=== PATIENT | female | born 1970 | race Caucasian/White ===

== ENCOUNTER 2020-02-15 02:22 | Day surgery (SDC) | payer BC, SELFPAY ==
[2020-02-14 10:20] VITALS: BMI 30.2
[2020-02-15] VITALS (8 sets, daily range): BP systolic 103–133; BP diastolic 74–89; PULSE 65–87; RESP 14–20; TEMP 36.1–36.5; O2SAT 92–99
--- NOTE | ~2020-02-15 | XR_ITS ---
EXAMINATION: XR surgery orthopedic DATE: 02/15/2020 12:11 INDICATION: ORIF for left fifth metacarpal fracture TECHNIQUE: 3 fluoroscopic spot images of the left hand were obtained during procedure performed by Dr Annamaria Anderson. Radiologist was not present for the imaging or procedure. The amount of fluoroscopy time u sed during this procedure was 0.1 minutes. COMPARISON: None. FINDINGS: Dorsal plate and screw fixation across the diaphyseal fracture of the left fifth metacarpal. Alignmen t appears near-anatomic. No other fractures identified. Joint spaces are normal. IMPRESSION: 1. Near-anatomic alignment post dorsal plate and screw fixation of a left fifth metacarpal diaphyseal fracture. Reviewed, dictated and finalized at location A.
[2020-02-15] MEDS: LACTATED RINGERS 1,000 ML 30 ML IV CONT (09:20)
--- NOTE | 2020-02-15 10:19 | WPDANESEPPF ---
Anes - Initial Pre Proc Eval Procedure: Operation Date: 02/15/20 11:00 Proposed Procedures p Open Reduction Internal Fixation Left Fifth Metacarpal - Thad Anderson MD Date/Time: 02/15/20 10:19 Surgeon: Thad Anderson MD Pre Op Diagnosis: Hand Pain Patient Data Age: 50 Gender: F Height: 4 ft 11 in Weight: 67.5 kg Last Vital Signs Temp 36.5 C 02/15/20 09:18 Pulse 73 02/15/20 09:18 Resp 20 02/15/20 09:18 BP 103/74 02/15/20 09:18 Pulse Ox 97 02/15/20 09:18 Allergies Allergy/AdvReac Type Severity Reaction Status Date / Time doxycycline Allergy Intermediate Hives Verified 02/15/20 09:26 Sulfa (Sulfonamide Allergy Intermediate Hives Verified 02/15/20 09:26 Antibiotics) citric acid Allergy Unknown Rash Verified 02/15/20 09:26 latex Allergy Unknown Rash Verified 02/15/20 09:26 Home Medications Medication Instructions Recorded Confirmed Type albuterol sulfate [ProAir HFA] 1 inh INHALATION QID PRN 02/14/20 02/15/20 History cephalexin 500 mg PO BID 02/14/20 02/15/20 History clopidogrel 75 mg PO DAILY 02/14/20 02/15/20 History fluoxetine 40 mg PO DAILY 02/14/20 02/15/20 History hydrocodone-acetaminophen 1 tablet PO Q6H PRN 02/14/20 02/15/20 History lorazepam 1 mg PO TID 02/14/20 02/15/20 History nortriptyline 25 mg PO HS 02/14/20 02/15/20 History pantoprazole 40 mg PO DAILY 02/14/20 02/15/20 History prochlorperazine maleate 10 mg PO TID PRN 02/14/20 02/15/20 History risperidone 1 mg PO HS 02/14/20 02/15/20 History sumatriptan succinate 6 mg SUBCUT BID PRN 02/14/20 02/15/20 History topiramate 50 mg PO DAILY PRN 02/14/20 02/15/20 History Patient hx anesthesia problems: none Family hx anesthesia problems: none PMFSH Past Medical History Medical History Bipolar 1 disorder Obesity Smoker Surgical History Surgical History (Updated 02/15/20 @ 10:20 by Jeremi Stoll MD) History of cholecystectomy Anes - Eval Final PreProcedure Day of Procedure 02/15/20 10:19 Patient weight: obese Heart: regular rate and rhythm Lungs: clear to auscultation Airway: Mallampati scale class II and special considerations poor dentition Neurological: alert and oriented Last oral intake: >/= 8 hours ASA classification: III Emergent: no Anesthetic plan: proceed Anesthesia type and monitoring: general LMA and standard monitoring Informed Consent: The patient's anesthetic plan and its attendant risks and benefits were discussed with the patient/family/POA. Questions were solicited and answers provided to the satisfaction of the patient/family/POA.
--- NOTE | 2020-02-15 10:43 | WPDHPUPDATE1 ---
History and Physical Update Update Date/Time: 02/15/20 10:43 History and Physical has been reviewed, including an updated exam of the patient. There are NO changes in the patient's condition. Risks, benefits, and alternatives have been discussed and questions answered. Patient agrees to proceed with procedure.
[2020-02-15] MEDS: ceFAZolin 2 GM/D5W 50 ML 2 GM/50 ML BAG IVPB (10:59)
--- NOTE | 2020-02-15 12:13 | PM.PROC ---
Procedure Note - Detailed Date of procedure: 02/15/20 Pre-op diagnosis: Hand Pain LEFT 5th MC fracture Post-op diagnosis: same Procedure performed: ORIF LEFT 5th MC fracture Description of procedure: Misc it was properly identified in the preoperative holding area. Signed consent was reviewed. All questions were thoroughly answered my initials were clearly placed on the dorsal aspect of the operative left hand. Patient was taken to the operating room where she was placed in a supine position and general anesthetic was administered. The left upper extremity was elevated, prepped and draped in sterile circumferential manner, exsanguinated and the tourniquet inflated. A brief pauses held identified as the correct patient extremity procedure to be performed carried out, all the room agreement, all. implants in the room immediately available, all sponge and needle counts were verified to be correct. A longitudinal dorsal incision was made directly over the 5th metacarpal centered on the fracture. Soft tissue dissection was meticulously carried down to level of the extensor tendons. The tendons were lightly in gently dissected and retracted ulnarly. Exposure of the underlying fracture was noted. The fracture was an oblique fracture with a dorsal butterfly comminuted piece. A single interfragmentary screw was placed utilizing compression by technique securing the butterfly fragment to the distal metacarpal diaphysis. Once three-part fracture been converted to a 2 part fracture the metacarpall diaphysis was reduced with a [id number] clamp. The [employer] hand plate was then fit a fabricated to fit the contour of the dorsal metacarpal. The plate was screwed with 3 bicortical screws proximally and 3 bicortical screws distally. The [id number] clamp was removed and the fracture was inspected. The fracture is noted to have near anatomic reduction. Fluoroscopy was brought in and under multiple orthogonal views confirmation of fracture reduction as well as placement of all hardware was confirmed. The entire incisions thoroughly irrigated with sterile saline solution the fingers and the wrist replace all full range of motion the fracture held excellent reduction without any failure of the hardware. The incision was closed in layered fashion of the definitive skin closure accomplished with 3 0 Vicryl in the subcutaneous tissues and Dermabond glue on the skin. 4 x 4 and Kurtis bandage was used as a sterile surgical dressing. Postoperative ulnar gutter metatarsal brace was placed holding the 4th and 5th digits at the intrinsic positive position. The tray was deflated in the fingertips pinked up immediately with good brisk capillary refill noted to the nail beds. Anesthesia was reversed and the skin was extubated, taken to postop recovery in stable extubated state, no apparent complications were noted. A postop sponge and needle counts were verified to be correct Implants: BioMet hand plate and screws Anesthesia: GETA Surgeon: Thad Anderson MD Estimated blood loss (mL): 5 Drains: No Packing: No Pathology: none sent Complications: No immediate complications Condition: stable Disposition: PACU Findings: Comminuted 5th MC fracture without signs infection/pathology
== END 2020-02-15 13:41 | disposition home or self-care (01) ==
PROVIDERS: PCP Internal Medicine; Visit Provider Orthopaedic Surgery
DX: S62.327A Displaced fracture of shaft of fifth metacarpal bone, left hand, initial encounter for closed fracture (principal); W22.09XA Striking against other stationary object, initial encounter; F31.9 Bipolar disorder, unspecified; E66.9 Obesity, unspecified; Z68.30 Body mass index [BMI] 30.0-30.9, adult; Z79.02 Long term (current) use of antithrombotics/antiplatelets
CPT/HCPCS: 26615; A9270; J0131; J0690; J1100; J1170; J1885; J2250; J2405; J2704; J3010; J7120